=== PATIENT | female | born 1975 | race Caucasian/White ===

== ENCOUNTER → 2016-02-24 | Outpatient (CLI) | payer OTHER ==
[~2016-02-24] MED LIST: BCPILLS PO; LEVO125T72 PO; MULT-506 PO
== END | disposition home or self-care (01) ==
LOC: C.LAB 07:19
PROVIDERS: ATTEND Specialist
DX: Z32.00 Encounter for pregnancy test, result unknown (principal)

== ENCOUNTER → 2016-08-02 | Outpatient (CLI) | payer OTHER ==
--- NOTE | 2016-08-02 12:50 | DIAGNOSTIC IMAGING REPORT ---
THYROID ULTRASOUND CLINICAL HISTORY: Hypothyroidism. Thyroid nodule versus heterogeneity. COMPARISON STUDY: Thyroid ultrasound December 21, 2015. TECHNIQUE: Sonography of the thyroid gland was performed. FINDINGS: The right thyroid lobe measures 5.2 x 1.9 x 1.8 cm and the left lobe measures 5.1 x 1.6 x 1.9 cm. As before, the gland is mildly enlarged and markedly heterogeneous. Note is made of a 1.1 x 0.6 x 1.2 cm suspected solid slightly echogenic nodule within the left aspect of the isthmus. This likely reflects a nodule although heterogeneous parenchyma could appear similar. This nodule contains vascular flow. IMPRESSION: 1. No significant change in a suspected 1.2 cm left isthmus nodule since exam of December 21, 2015. While this could reflect heterogeneous parenchyma, a nodule is favored although this does not meet criteria for biopsy. 2. Mildly enlarged, markedly heterogeneous thyroid gland. Electronically signed by: Israel Metzger M.D. 08/02/2016 12:49 PM Dictated Date/Time: 08/02/2016 12:41 PM
[2016-08-02 14:03] LABS: THYROID STIMULATING HORMONE 1.79 uIu/ml (0.300-4.500)
== END | disposition home or self-care (01) ==
LOC: C.ULTR 12:05
PROVIDERS: ATTEND Internal Medicine Endocrinology, Diabetes & Metabolism
DX: E03.9 Hypothyroidism, unspecified (principal); M79.1 Myalgia

== ENCOUNTER → 2016-10-11 | Outpatient (CLI) | payer OTHER ==
[2016-10-11 10:50] LABS: CHOLESTEROL/HDL RATIO 6.2
[2016-10-11 10:58] LABS: THYROID STIMULATING HORMONE 1.61 uIu/ml (0.300-4.500)
== END | disposition home or self-care (01) ==
LOC: C.LAB 09:21
PROVIDERS: ATTEND Physician Assistant
DX: Z00.00 Encounter for general adult medical examination without abnormal findings (principal); E03.9 Hypothyroidism, unspecified

== ENCOUNTER → 2017-02-23 | Outpatient (CLI) | payer OTHER ==
[2017-02-28 14:22] LABS: INSULIN LIKE GROWTH FACTOR-I 151 ng/mL (53-331)
== END | disposition home or self-care (01) ==
LOC: C.LAB 13:33
PROVIDERS: ATTEND Internal Medicine Endocrinology, Diabetes & Metabolism
DX: E66.9 Obesity, unspecified (principal); E55.9 Vitamin D deficiency, unspecified; E03.9 Hypothyroidism, unspecified

== ENCOUNTER → 2017-05-16 | Outpatient (CLI) | payer OTHER | END | disposition home or self-care (01) | LOC: C.LAB 08:54 | PROVIDERS: ATTEND Internal Medicine Endocrinology, Diabetes & Metabolism | DX: E03.9 Hypothyroidism, unspecified (principal); E55.9 Vitamin D deficiency, unspecified ==

== ENCOUNTER → 2017-06-01 | Outpatient (CLI) | payer OTHER ==
--- NOTE | 2017-06-01 11:37 | DIAGNOSTIC IMAGING REPORT ---
SOFT TISS HEAD/NECK-THYROID CLINICAL HISTORY: 42 years-old Female presenting with E04.1 Thyroid [id number]. TECHNIQUE: Real-time grayscale and color Doppler ultrasound imaging of the thyroid and base of the neck was performed. COMPARISON: 08/02/2016. FINDINGS: Right lobe: Heterogeneous echotexture and echogenicity. The right lobe of the thyroid measures 5.0 x 1.7 x 2.0 cm. No parenchymal hyperemia. No nodules. Left lobe: Heterogeneous echotexture and echogenicity. The left lobe of the thyroid measures 4.4 x 1.9 x 1.8 cm. No parenchymal hyperemia. No nodules. Isthmus: The isthmus measures 6 mm in thickness. No parenchymal hyperemia. Previously noted isoechoic nodule in the isthmus is not as well characterized. Multiple hypoechoic nodules noted along the pretracheal region there is some of these may represent benign lymph nodes. IMPRESSION: 1. Heterogeneity of thyroid parenchyma likely suggest underlying systemic thyroid disease such as Regina's thyroiditis or Graves' disease. No discrete nodule. 2. Multiple small benign-appearing lymph nodes in the pretracheal region. Electronically signed by: Jenaro Ha M.D. 06/01/2017 11:36 AM Dictated Date/Time: 06/01/2017 11:33 AM
== END | disposition home or self-care (01) ==
LOC: C.ULTR 11:01
PROVIDERS: ATTEND Internal Medicine Endocrinology, Diabetes & Metabolism
DX: E04.1 Nontoxic single thyroid nodule (principal)